=== PATIENT | female | born 1990 | race Caucasian/White ===

== ENCOUNTER → 2017-09-22 09:21 | Outpatient (CLI) | payer OTHER, MEDICAID, SELFPAY ==
--- NOTE | 2017-09-22 | DI.US.S_ITS ---
PROCEDURE: US PELVIC COMPLETE INDICATIONS: PROLONGED MENSES TECHNIQUE: Real-time scanning was performed of the pelvic organs, with image documentation. Additional endovaginal scanning was necessary due to incomplete visualization of the adnexal and endometrial structures by transabdominal scanning. COMPARISON: None. FINDINGS: Transabdominal scanning: Limited scanning through the kidneys shows no hydronephrosis. No pathologic free abdominal or pelvic fluid. Endovaginal scanning: Uterus: Uterus is normal in size at 8.4 x 4.2 x 5.8 cm. The endometrium measures 14.9 mm in combined thickness. Ovaries: Right ovary measures for asymmetry #42 mm. Left ovary measures 41 x 29 x 37 mm. There is a complex focus of heteroechogenicity without increased vascularity within the right ovary measuring 42 x 31 x 35 mm. A similar focus is noted on the left measuring 21 x 14 x 21 mm. IMPRESSION: 1. Bilateral foci of heteroechogenicity within the ovary suggestive of complex cysts. Six-week interval followup is recommended to document resolution. Otherwise, unremarkable exam. Dictated by: Ilana Diallo M.D. on 09/22/2017 at 9:59 Approved by: Ilana Diallo M.D. on 09/22/2017 at 10:00
== END ==
PROVIDERS: PCP Physician Assistant; Visit Provider Physician Assistant
DX: N92.1 Excessive and frequent menstruation with irregular cycle (principal)
CPT/HCPCS: 76830; 76856

== ENCOUNTER → 2017-12-01 09:24 | Outpatient (CLI) | payer OTHER, MEDICAID, SELFPAY ==
--- NOTE | 2017-12-01 | DI.US.S_ITS ---
PROCEDURE: US PELVIC COMPLETE INDICATIONS: FOLLOW-UP OVARIAN CYSTS TECHNIQUE: Real-time scanning was performed of the pelvic organs, with image documentation. Additional endovaginal scanning was necessary due to incomplete visualization of the adnexal and endometrial structures by transabdominal scanning. COMPARISON: [facility], , US PELVIC COMPLETE, 09/22/2017, 9:29. FINDINGS: Transabdominal scanning: Limited scanning through the kidneys shows no hydronephrosis. The kidneys measure 10.5 CM right and 11.7 CM left. No pathologic free abdominal or pelvic fluid. Endovaginal scanning: Uterus: Uterus is normal in size at 4.2 x 5.5 x 7.9 cm. The endometrium measures 14.4 mm in combined thickness. Ovaries: The ovaries appear normal measuring 25 x 27 x 39 mm right and 27 x 27 x 41 mm left. Previously seen bilateral ovarian cysts have resolved. IMPRESSION: 1. Normal uterus and ovaries. Previously described bilateral ovarian cysts have resolved. Dictated by: Richard Ceja M.D. on 12/01/2017 at 11:01 Approved by: Richard Ceja M.D. on 12/01/2017 at 11:04
== END ==
PROVIDERS: PCP Physician Assistant Medical; Visit Provider Physician Assistant
DX: N83.202 Unspecified ovarian cyst, left side (principal); N83.201 Unspecified ovarian cyst, right side
CPT/HCPCS: 76830; 76856